=== PATIENT | female | born 1980 | race Caucasian/White ===

== ENCOUNTER 2020-02-17 14:55 | Outpatient (REF) | payer SELFPAY ==
[2020-02-17 21:47] LABS: Iron 43 ug/dL (50-170); Total Iron Binding Capacity 275 ug/dL (250-450); Transferrin Sat 16 % (15-50)
[2020-02-17 21:49] LABS: Calculated LDL 109 mg/dL (<100); Cholesterol 177 mg/dL (<200); HDL Cholesterol 58 mg/dL (40-60); Triglyceride 54 mg/dL (<150)
[2020-02-17 22:16] LABS: Ferritin 62 ng/mL (8-252); TSH (W/Ref FT4) 1.07 uIU/mL (0.36-3.74); Vitamin B12 403 pg/mL (193-986)
[2020-02-19 08:52] LABS: HBs Antibody, Quant 45.9 mIU/mL (See Note); Hepatitis B Surface Ab Positive (See Note)
[2020-02-19 09:37] LABS: HIV-1/2 Ag & Ab Screen Negative (Negative)
[2020-02-19 10:04] LABS: Hepatitis C Ab w Rflx HCV PCR Negative (Negative)
[2020-02-19 10:21] LABS: Hep A Total Ab w Rflx IgM Negative (Negative)
== END 2020-02-17 15:15 ==
LOC: NCHCN 14:55
PROVIDERS: PCP Physician Assistant Medical; Visit Provider Nurse Practitioner Family
DX: R53.83 Other fatigue (principal); Z13.220 Encounter for screening for lipoid disorders; Z11.3 Encounter for screening for infections with a predominantly sexual mode of transmission
CPT/HCPCS: 80061; 82306; 86706; 86709; 86803; 87389; 82607; 82728; 83540; 83550; 84443

== ENCOUNTER 2020-04-19 21:19 | Outpatient (REF) | payer SELFPAY ==
[2020-04-21 18:44] LABS: COVID-19 RT-PCR UVMMC Result Negative (Negative)
== END 2020-04-19 21:39 ==
LOC: NCHCN 21:19
PROVIDERS: PCP Physician Assistant Medical; Visit Provider Physician Assistant
DX: R06.02 Shortness of breath (principal); Z20.822 Contact with and (suspected) exposure to COVID-19
CPT/HCPCS: U0003

== ENCOUNTER 2020-11-24 12:46 | Outpatient (REF) | payer MEDICAID, SELFPAY ==
--- NOTE | 2020-11-23 13:30 | PAPFT_PTH ---
PATIENT: Soledad Andres LOC: [facility] U#:[id number] AGE/SX: 40/F ROOM: RE11/24/[address]: Katya Wyatt : 1980 BED: DIS: 11/24/2020 SPEC #: [id number] RECD: 11/24/20 12:59 STATUS: NEGRITO REAlfredo #: [id number] STANTON: 11/23/20 13:[address]: Ayala Wyatt DEPT: [facility] Cytology RECD BY: Nikki Sims Tissues: 1 - CX/ENDOCX FOR PAP SMEARS Procedures: PAP THIN PREP/[facility] Screening Comments: [id number] (UNSATISFACTORY FOR EVALUATION)
== END 2020-11-24 12:47 | disposition home or self-care (01) ==
LOC: NCHCN 12:46
PROVIDERS: Visit Provider Nurse Practitioner Family
DX: Z12.4 Encounter for screening for malignant neoplasm of cervix (principal); R87.615 Unsatisfactory cytologic smear of cervix
CPT/HCPCS: 88142